=== PATIENT | female | born 1990 | race Caucasian/White ===

== ENCOUNTER 2017-09-04 21:04 | Emergency (ER) | payer OTHER ==
[~2017-09-04] VITALS: Ht 165.1 cm; Wt 86.9 kg
[2017-09-04] MEDS ORDERED: AMOXICILLIN875 MG PO (22:49)
[2017-09-04 22:56] VITALS: BP 139/84
== END 2017-09-04 22:58 | disposition home or self-care (01) ==
LOC: RME 21:04 → EME 21:04 → RME 22:58
DX: S20.462A Insect bite (nonvenomous) of left back wall of thorax, initial encounter (principal); W57.XXXA Bitten or stung by nonvenomous insect and other nonvenomous arthropods, initial encounter; Z33.1 Pregnant state, incidental; Z88.2 Allergy status to sulfonamides
CPT/HCPCS: 99281; 99282